=== PATIENT | female | born 2000 | race Caucasian/White ===

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

== ENCOUNTER → 2020-06-11 | Outpatient (CLI) | payer MEDICAID ==
[~2020-06-11] MED LIST changes: +CEPHALEXIN500 M1 PO; +NEXPLANON68 MG ID
== END ==
LOC: COL.LAB 10:13
DX: Z20.822 Contact with and (suspected) exposure to COVID-19 (principal)

== ENCOUNTER 2020-06-14 08:57 | Outpatient (CLI) | payer MEDICAID ==
[~2020-06-14] VITALS: Ht 172.7 cm; Wt 101.3 kg
[~2020-06-14 08:57] MED LIST changes: -CEPHALEXIN500 M1 PO; -NEXPLANON68 MG ID
[2020-06-14] MEDS ORDERED: NEXPLANON68 MG ID (09:34)
[2020-06-14 09:36] VITALS: BP 117/67; PULSE 78; TEMP 98.1
[2020-06-14] MEDS ORDERED: CEPHALEXIN500 M1 PO (12:19)
[2020-06-14 12:41] VITALS: BP 107/54; PULSE 84
--- NOTE | 2020-06-14 12:41 | NUR ---
INT DC'd with catheter intact. Dressing over loop recorder site remains clean, dry and intact. DC instructions reviewed, pt expresses understanding. She will be taken to friend's car by wheelchair.
--- NOTE | 2020-06-14 12:47 | NUR ---
Pt refuses wheelchair, ambulates out with steady gait. Escorted to waiting room. She has personal belongings and loop equipment.
== END 2020-06-14 12:48 | disposition home or self-care (01) ==
LOC: COL.CAR 08:57
DX: R55 Syncope and collapse (principal); R00.0 Tachycardia, unspecified; R00.2 Palpitations; F17.200 Nicotine dependence, unspecified, uncomplicated; Z82.49 Family history of ischemic heart disease and other diseases of the circulatory system
CPT/HCPCS: C1764